=== PATIENT | female | born 1955 | race Caucasian/White ===

== ENCOUNTER → 2020-07-13 | Outpatient (CLI) | payer OTHER, MEDICARE ==
[~2020-07-13] MED LIST: ACETAMINOPHEN500 MG PO; ELIQUIS 2.5 MG2.5 MG PO; HYDROCODON-ACE1 EAC2 PO; LEVOCETIRIZINE D5 MG PO; MONTELUKAST SOD10 MG PO; NORCO 5-325 TA1 EACH PO; SINGULAIR10 MG PO; VENTOLIN HFA 66.7 GM INH; XYZAL5 MG PO
[2020-07-13 13:07] LABS: HEMOGLOBIN 13.9 gm/dl (12.3-15.3); RED BLOOD COUNT 4.83 M/UL (4.00-5.10); WHITE BLOOD COUNT 10.3 K/UL (4.5-11.0)
[2020-07-13 13:35] LABS: BUN/CREATININE RATIO 16 (0-10)
== END ==
LOC: OPSV2 12:00 → EDSTATUS 12:00 → OPSV2 12:31
PROVIDERS: Orthopaedic Surgery
DX: Z01.818 Encounter for other preprocedural examination (principal); M16.12 Unilateral primary osteoarthritis, left hip
CPT/HCPCS: 36415; 71046; 80048; 81001; 85025; 87081; 93005

== ENCOUNTER → 2020-07-25 | Outpatient (CLI) | payer MEDICARE, OTHER ==
[2020-07-25 13:06] LABS: BUN/CREATININE RATIO 19 (0-10)
== END ==
LOC: LAB 12:21
PROVIDERS: Orthopaedic Surgery
DX: Z53.8 Procedure and treatment not carried out for other reasons (principal)
CPT/HCPCS: 36415; 80048; 86850; 86900; 86901

== ENCOUNTER 2020-07-26 06:15 | Day surgery (SDC) | payer OTHER, MEDICARE ==
[~2020-07-26] VITALS: Ht 175.3 cm; Wt 72.6 kg
[~2020-07-26 06:15] MED LIST changes: -ACETAMINOPHEN500 MG PO; -HYDROCODON-ACE1 EAC2 PO; -LEVOCETIRIZINE D5 MG PO; -MONTELUKAST SOD10 MG PO; -VENTOLIN HFA 66.7 GM INH; -XYZAL5 MG PO
[2020-07-26] MEDS ORDERED: VENTOLIN HFA 66.7 GM INH (06:46)
[2020-07-26] MEDS ORDERED: HYDROCODON-ACE1 EAC2 PO (10:58)
[2020-07-26] MEDS ORDERED: LEVOCETIRIZINE D5 MG PO (14:27)
[2020-07-26] MEDS ORDERED: MONTELUKAST SOD10 MG PO (14:27)
[2020-07-26] MEDS ORDERED: XYZAL5 MG PO (14:51)
[2020-07-26] MEDS ORDERED: ACETAMINOPHEN500 MG PO (15:19)
[2020-07-27 03:07] LABS: HEMOGLOBIN 11.2 gm/dl (12.3-15.3); RED BLOOD COUNT 3.87 M/UL (4.00-5.10)
[2020-07-27 03:29] LABS: BUN/CREATININE RATIO 20 (0-10)
[2020-07-27] MEDS ORDERED: ELIQUIS 2.5 MG2.5 MG PO (09:40)
--- NOTE | 2020-07-27 16:46 | NUR ---
REPORT CALLED TO [facility] ([facility])
== END 2020-07-27 14:55 | disposition home or self-care (01) ==
LOC: OR 06:15 → M/S 13:39 → OR 13:39 → M/S 13:39 → OR 07-27 14:55 → M/S 07-27 14:55
PROVIDERS: Orthopaedic Surgery
PROC: 0SRB049 Replacement of Left Hip Joint with Ceramic on Polyethylene Synthetic Substitute, Cemented, Open Approach (ICD-10-PCS; principal; 2020-07-26 07:45)
DX: M16.12 Unilateral primary osteoarthritis, left hip (principal); I10 Essential (primary) hypertension; I48.92 Unspecified atrial flutter; J44.9 Chronic obstructive pulmonary disease, unspecified; F17.210 Nicotine dependence, cigarettes, uncomplicated; Z96.641 Presence of right artificial hip joint; Z20.822 Contact with and (suspected) exposure to COVID-19
CPT/HCPCS: 36415; 72170; 76000; 80048; 85025; 86850; 86900; 86901; 97116-GP-CQ; 97162; 97165; 97535; C1776; J0171; J0360; J0690; J1100; J1170; J2001; J2405; J2550; J2704; J2710; J2795; J3010; J3370; J7050; J7120; U0003